=== PATIENT | male | born 1965 | race Caucasian/White ===

== ENCOUNTER → 2017-11-05 | Outpatient (CLI) | payer BC, OTHER ==
[~2017-11-05] MED LIST: IOPAMIDOL (ISOVUE-300) 100 ML BTL ONE
== END ==
LOC: CIMAGING 09:30
PROVIDERS: ATTEND Physician Assistant
DX: R10.32 Left lower quadrant pain (principal); Z98.52 Vasectomy status
CPT/HCPCS: 74177-PO; Q9967